=== PATIENT | female | born 1965 | race Caucasian/White ===

== ENCOUNTER 2016-08-30 16:37 | Emergency (ER) | payer BC ==
[~2016-08-30] VITALS: Ht 162.6 cm; Wt 47.2 kg
[~2016-08-30 16:37] MED LIST: ATENOLOL50 MG PO; Aspirin E.C. PO; CIPRO500 MG PO; COMBIVENT RESPIM4 GM IH; DULERA 100 MCG/13 GM IH; FLAGYL500 MG PO; Fioricet,Esgic,Repan PO; HYDROCODON-ACE1 EAC7 PO; LORZONE750 MG PO; LYRICA100 MG PO; ROXICODONE5 MG PO; RYBIX ODT50 MG PO; TENORMIN25 MG PO; ZOFRAN ODT8 MG PO
[2016-08-30] MEDS ORDERED: INDOCIN25 MG PO (19:26)
[2016-08-30 19:53] VITALS: BP 146/78
== END 2016-08-30 19:55 | disposition home or self-care (01) ==
LOC: EME 16:37 → EXP 16:37
DX: M23.91 Unspecified internal derangement of right knee (principal); W19.XXXA Unspecified fall, initial encounter; Y92.007 Garden or yard of unspecified non-institutional (private) residence as the place of occurrence of the external cause; F17.200 Nicotine dependence, unspecified, uncomplicated
CPT/HCPCS: 73564; 99281; 99283

== ENCOUNTER → 2016-09-22 | Outpatient (CLI) | payer BC ==
[~2016-09-22] MED LIST changes: +INDOCIN25 MG PO
[2016-09-22 16:19] LABS: ANION GAP 9 MEQ/L (2-14); CHLORIDE 99 MEQ/L (99-109); POTASSIUM 4.5 MEQ/L (3.7-5.4); SAMPLE HEMOLYSIS CHECK 0; SAMPLE ICTERIC CHECK 0; SAMPLE LIPEMIA CHECK 0; SODIUM 136 MEQ/L (136-147); TOTAL BILIRUBIN 0.5 MG/DL (0.0-1.0)
[2016-09-22 16:25] LABS: ALKALINE PHOSPHATASE 95 IU/L (3-129); GFR ESTIMATE (CALCULATED) > 59 mL/min/; GLUCOSE 99 mg/dL (70-99); UREA NITROGEN (BUN) 8 mg/dL (9-23)
[2016-09-22 16:55] LABS: APPEARANCE CLEAR/COLORLESS
[2016-09-22 16:58] LABS: CSF EOSINOPHILS 0 % (0-25); MONO RAW COUNT 24; MONONUCLEAR WBC'S 96 % (50-90); POLY RAW COUNT 1; POLYNUCLEAR WBC'S 4 % (0-3)
[2016-09-22 17:04] LABS: RED CELL AREA COUNTED 18; RED CELL COUNT 1 /MM^3 (0-1); RED CELL DILUTION 1; WBC AREA COUNTED 18; WBC DILUTION 1; WHITE CELL COUNT 0 /MM^3 (0-5); WHITE CELL RAW COUNT 0
[2016-09-24 20:41] LABS: Albumin, Serum 4.5 g/dL (3.5-4.9); IgG Index, CSF 0.42 index (<0.66); Synthesis Rate IgG, CSF -3.9 mg/24 h (-9.9-3.3)
== END | disposition home or self-care (01) ==
LOC: RAD 14:26 → EDSEX 15:00
PROVIDERS: Psychiatry & Neurology Neurology
PROC: 009U3ZZ Drainage of Spinal Canal, Percutaneous Approach (ICD-10-PCS; principal; 2016-09-22)
DX: R26.0 Ataxic gait (principal)
CPT/HCPCS: 62270; 77003; 80053; 82040 90; 82042 90; 82784 90; 82945; 83873 90; 83916 90; 84157; 89051